=== PATIENT | female | born 2000 | race African-American/Black ===

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

== ENCOUNTER 2022-03-15 15:39 | Emergency (ER) | payer OTHER ==
[~2022-03-15] VITALS: Ht 144.8 cm; Wt 43.0 kg
[2022-03-15] MEDS ORDERED: CYCLOBENZAPRINE 10 MG TABLET. PO ONE (16:00)
[2022-03-15] MEDS ORDERED: HYDROcodone/APAP 5/325MG 1 TAB TABLET PO ONE (16:00)
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
[2022-03-15] MEDS ORDERED: HYDR-2761 PO (17:26)
[2022-03-15] MEDS ORDERED: CYCL10TA19 PO (17:26)
[2022-03-15 17:28] VITALS: BP 124/86
== END 2022-03-15 17:35 | disposition home or self-care (01) ==
LOC: EEVIPCON 15:39 → ER 15:39
DX: O9A.211 Injury, poisoning and certain other consequences of external causes complicating pregnancy, first trimester (principal); S20.211A Contusion of right front wall of thorax, initial encounter; S61.302A Unspecified open wound of right middle finger with damage to nail, initial encounter; O46.8X1 Other antepartum hemorrhage, first trimester; S13.9XXA Sprain of joints and ligaments of unspecified parts of neck, initial encounter; M54.50 Low back pain, unspecified; M54.6 Pain in thoracic spine; M25.561 Pain in right knee; M25.562 Pain in left knee; R07.81 Pleurodynia; M25.551 Pain in right hip; M25.552 Pain in left hip; Z3A.01 Less than 8 weeks gestation of pregnancy; Y08.89XA Assault by other specified means, initial encounter; Y93.89 Activity, other specified; Y92.89 Other specified places as the place of occurrence of the external cause; Y99.8 Other external cause status
CPT/HCPCS: 76801; 81025; 99284-25

== ENCOUNTER 2022-03-16 01:54 | Emergency (ER) | payer OTHER ==
[~2022-03-16] VITALS: Ht 139.7 cm; Wt 43.0 kg
[~2022-03-16 01:54] MED LIST changes: +CYCL10TA19 PO; +HYDR-2761 PO
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
[2022-03-16] MEDS ORDERED: ONDANSETRON ODT 4 MG TAB.RAPDIS. PO ONE (02:30)
[2022-03-16] MEDS ORDERED: ACETAMINOPHEN 500 MG TABLET PO ONE (02:30)
[2022-03-16 02:33] VITALS: BP 101/61
== END 2022-03-16 02:51 | disposition home or self-care (01) ==
LOC: EEVIPCON 01:54 → ER 01:54
DX: S61.302A Unspecified open wound of right middle finger with damage to nail, initial encounter (principal); S61.304A Unspecified open wound of right ring finger with damage to nail, initial encounter; Y08.89XA Assault by other specified means, initial encounter; Y93.89 Activity, other specified; Y92.89 Other specified places as the place of occurrence of the external cause; Y99.8 Other external cause status
CPT/HCPCS: 99283